=== PATIENT | female | born 1960 | race Two or more races ===

== ENCOUNTER 2021-01-22 10:06 | Emergency (ER) | payer OTHER ==
[~2021-01-22] VITALS: Ht 162.6 cm; Wt 76.2 kg
[~2021-01-22 10:06] MED LIST: TOPROL XL25 M1; ZYRTEC10 M3 PO
== END 2021-01-22 16:06 | disposition home or self-care (01) ==
LOC: ER 10:06
DX: G43.509 Persistent migraine aura without cerebral infarction, not intractable, without status migrainosus (principal)